=== PATIENT | female | born 1985 | race Caucasian/White ===

== ENCOUNTER 2019-12-04 14:10 | Emergency (ER) | payer OTHER, SELFPAY ==
[2019-12-04 15:17] LABS: Absolute Lymphocytes (CBC) 2.7 K/uL (0.7-4.9); Basophils % 0.2 % (0-1.3); Hematocrit 45.7 % (36.0-45.0); Lymphocytes % 18.2 % (15.3-44.8); MPV 7.2 fL (7.6-11.3); RBC Red Blood Cell Count 5.08 M/uL (3.86-4.86)
[2019-12-04 15:26] LABS: Urine Blood NEGATIVE (NEG); Urine Glucose NEGATIVE (NEG); Urine Protein NEGATIVE (NEG); Urine pH 7.5 (5.0-7.0)
--- NOTE | 2019-12-04 15:58 | RAD REPORT ---
EXAM DESCRIPTION: US - Transvaginal OB - 12/04/2019 3:43 pm CLINICAL HISTORY: VAGINAL BLEEDING COMPARISON: TRANSVAGINALOB dated 07/02/2008 FINDINGS: A single gestational sac is seen within the uterus. The shape of the sac is within normal limits for gestational age. Within the sac is a single pole with crown-rump length of 5 mm, cor relating to estimated gestational age of 6 weeks 3 days. Estimated date of delivery is 07/28/2020. Heart rate is 154 BPM. The placenta is not yet developed due to early gestational age. The maternal adnexa and ovaries are within normal limits. Normal Doppler blood flow was demonstrated to both ovaries. IMPRESSION: Single live early intrauterine gestation with estimated gestational age of 6 weeks 1 day , MARIELA 07/28/2020. No unusual or unexpected finding.
[2019-12-04 16:01] LABS: Potassium 3.7 mmol/L (3.5-5.1)
--- NOTE | 2019-12-04 16:09 | ER ---
Nurse's Notes [facility] Name: Kirti Garcia Age: 34 yrs Sex: Female : 1985 Arrival Date: 12/04/2019 Time: 14:13 Bed 13 Private MD: Diagnosis: Intrauterine 6 weeks;Threatened Presentation: 12/03 14:36 Chief complaint: Patient states: Had intercourse last night. Wiped after voiding at jl7 1100 this morning and there was pink on the toilet paper, nothing since then. Denies pain, denies N/V/D, denies fever, denies shortness of breath. Reports previous miscarriage when she was 20 yrs old. Coronavirus screen: Proceed with normal triage. Ebola Screen: No symptoms or risks identified at this time. Initial Sepsis Screen: Does the patient meet any 2 criteria? No. Patient's initial sepsis screen is negative. Does the patient have a suspected source of infection? No. Patient's initial sepsis screen is negative. Risk Assessment: Do you want to hurt yourself or someone else? Patient reports no desire to harm self or others. Onset of symptoms was December 04, 2019 at 11:00. Care prior to arrival: None. 14:36 Method Of Arrival: Ambulatory jl7 14:36 Acuity: MICHELLE 4 jl7 Triage Assessment: 14:45 General: Appears in no apparent distress. uncomfortable, Behavior is cooperative, jl7 anxious. Pain: Denies pain. : Reports vaginal bleeding that is light pink on toilet paper x 1 at 1100 this morning. 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 - Social history:: Smoking status: Patient reports the use of cigarette tobacco products, 3-5 cigarettes/day. Screenin:17 Abuse screen: Denies threats or abuse. Nutritional screening: No deficits noted. vc Tuberculosis screening: No symptoms or risk factors identified. Fall Risk None identified. Assessment: 15:27 General: Appears in no apparent distress. comfortable. Pain: Denies pain. Neuro: Level vc of Consciousness is awake, alert, obeys commands, Oriented to person, place, time, situation, Appropriate for age. Cardiovascular: Capillary refill. Respiratory: Airway is patent Respiratory effort is even, unlabored, Respiratory pattern is regular, symmetrical. GI: No signs and/or symptoms were reported involving the gastrointestinal system. : Reports vaginal bleeding that is. EENT: No signs and/or symptoms were reported regarding the EENT system. Derm: No signs and/or symptoms reported regarding the dermatologic system. Musculoskeletal: Circulation, motion, and sensation intact. Range of motion: intact in all extremities. 15:57 Reassessment: Patient talking on the phone while vitals are being taken. vc 16:00 Reassessment: Patient appears in no apparent distress at this time. Patient and/or vc family updated on plan of care and expected duration. Pain level reassessed. Patient is alert, oriented x 3, equal unlabored respirations, skin warm/dry/pink. Vital Signs: 14:36 BP 159 / 102; Pulse 101; Resp 17; Temp 98.3; Pulse Ox 100% ; Pain 0/10; jl7 15:07 BP 142 / 95; Pulse 96; Resp 17; Pulse Ox 100% ; vc 15:55 BP 141 / 104; Pulse 85; Pulse Ox 100% ; vc ED Course: 14:13 Patient arrived in ED. mr 14:40 Triage completed. jl7 14:45 Arm band placed on right wrist. jl7 14:47 Chantelle Murcia [facility]-C [facility] snw 14:47 Piyush Paul MD is Attending Physician. snw 15:00 Fiorella Zaldivar RN is Primary Nurse. vc 15:04 Initial lab(s) drawn, by me, sent to lab. Urine collected: clean catch specimen, clear. dh3 Inserted saline lock: 20 gauge in right antecubital area, using aseptic technique. Blood collected. 15:19 Patient has correct armband on for positive identification. Bed in low position. vc classroom monitor on. Pulse ox on. 15:42 Transvaginal Ob In Process Unspecified. EDMS Administered Medications: No medications were administered Outcome: 16:08 Discharge ordered by . rebecca 16:15 Discharged to home ambulatory. vc 16:15 Condition: good 16:15 Discharge instructions given to patient, Instructed on discharge instructions, follow up and referral plans. medication usage, Demonstrated understanding of instructions, follow-up care, medications. 16:17 Patient left the ED. 3 Signatures: Dispatcher [employer] EDMS Chantelle Murcia, WELT SLASHER-C WELT SLASHER-Maxim PhilJohanna Reno Robbins, RN RN jlKandy Banks 3 Fiorella Zaldivar, RN RN vc Corrections: (The following items were deleted from the chart) 15:57 15:17 Obstetrical Assessment: Patient reports vaginal bleeding.. vc vc
--- NOTE | 2019-12-04 16:09 | EDPHYS ---
Physician Documentation [facility] Name: Kirti Garcia Age: 34 yrs Sex: Female : 1985 Arrival Date: 12/04/2019 Time: 14:13 Bed 13 Private MD: ED Physician Piyush Paul HPI: 12/03 15:58 This 34 yrs old Female presents to ER via Ambulatory with complaints of snw Vaginal Bleeding, + Preg <12wks. 15:58 The patient presents with vaginal bleeding that is spotting, with no clots. Onset: The snw symptoms/episode began/occurred suddenly, today. Modifying factors: the symptoms are aggravated by sexual intercourse. Associated signs and symptoms: The patient has no apparent associated signs or symptoms. Severity of symptoms: At their worst the symptoms were very mild. The patient is sexually active, reportedly has a single partner. The patient's method of control includes nothing. The patient has experienced a previous episode. It is unknown whether or not the patient has recently seen a physician. 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 - Social history:: Smoking status: Patient reports the use of cigarette tobacco products, 3-5 cigarettes/day. ROS: 14:57 Constitutional: Negative for fever, chills, and weight loss, Eyes: Negative for injury, snw pain, redness, and discharge, ENT: Negative for injury, pain, and discharge, Neck: Negative for injury, pain, and swelling, Cardiovascular: Negative for chest pain, palpitations, and edema, Respiratory: Negative for shortness of breath, cough, wheezing, and pleuritic chest pain, Abdomen/GI: Negative for abdominal pain, nausea, vomiting, diarrhea, and constipation, Back: Negative for injury and pain, : Negative for injury, discharge, and swelling, postitive spotting x 1 last pm post intercourse MS/Extremity: Negative for injury and deformity, Skin: Negative for injury, rash, and discoloration, Neuro: Negative for headache, weakness, numbness, tingling, and seizure, Psych: Negative for depression, anxiety, suicide ideation, homicidal ideation, and hallucinations. Exam: 14:57 Constitutional: This is a well developed, well nourished patient who is awake, alert, snw and in no acute distress. Head/Face: Normocephalic, atraumatic. Eyes: Pupils equal round and reactive to light, extra-ocular motions intact. Lids and lashes normal. Conjunctiva and sclera are non-icteric and not injected. Cornea within normal limits. Periorbital areas with no swelling, redness, or edema. ENT: Nares patent. No nasal discharge, no septal abnormalities noted. Tympanic membranes are normal and external auditory canals are clear. Oropharynx with no redness, swelling, or masses, exudates, or evidence of obstruction, uvula midline. Mucous membranes moist. Neck: Trachea midline, no thyromegaly or masses palpated, and no cervical lymphadenopathy. Supple, full range of motion without nuchal rigidity, or vertebral point tenderness. No Meningismus. Chest/axilla: Normal chest wall appearance and motion. Nontender with no deformity. No lesions are appreciated. Cardiovascular: Regular rate and rhythm with a normal S1 and S2. No gallops, murmurs, or rubs. Normal PMI, no JVD. No pulse deficits. Respiratory: Lungs have equal breath sounds bilaterally, clear to auscultation and percussion. No rales, rhonchi or wheezes noted. No increased work of breathing, no retractions or nasal flaring. Abdomen/GI: Soft, non-tender, with normal bowel sounds. No distension or tympany. No guarding or rebound. No evidence of tenderness throughout. Back: No spinal tenderness. No costovertebral tenderness. Full range of motion. Skin: Warm, dry with normal turgor. Normal color with no rashes, no lesions, and no evidence of cellulitis. MS/ Extremity: Pulses equal, no cyanosis. Neurovascular intact. Full, normal range of motion. Neuro: Awake and alert, GCS 15, oriented to person, place, time, and situation. Cranial nerves II-XII grossly intact. Motor strength 5/5 in all extremities. Sensory grossly intact. Cerebellar exam normal. Normal gait. Psych: Awake, alert, with orientation to person, place and time. Behavior, mood, and affect are within normal limits. Vital Signs: 14:36 BP 159 / 102; Pulse 101; Resp 17; Temp 98.3; Pulse Ox 100% ; Pain 0/10; jl7 15:07 BP 142 / 95; Pulse 96; Resp 17; Pulse Ox 100% ; vc 15:55 BP 141 / 104; Pulse 85; Pulse Ox 100% ; vc MDM: 14:49 Patient medically screened. snw 14:59 Data reviewed: vital signs, nurses notes. Data interpreted: Pulse oximetry: on room air snw is 100 %. Interpretation: normal. Counseling: I had a detailed discussion with the patient and/or guardian regarding: the historical points, exam findings, and any diagnostic results supporting the discharge/admit diagnosis, the presence of at least one elevated blood pressure reading (>120/80) during this emergency department visit, lab results, radiology results. 12/03 14:49 Order name: Quantitative Hcg; Complete Time: 16:03 snw 12/03 14:49 Order name: Abo/rh Typing; Complete Time: 16:08 snw 12/03 14:49 Order name: Basic Metabolic Panel; Complete Time: 16:03 snw 12/03 14:49 Order name: CBC with Diff; Complete Time: 15:42 snw 12/03 15:22 Order name: Urine Dipstick--Ancillary (enter results); Complete Time: 15:42 eb 12/03 15:22 Order name: Urine --Ancillary (enter results); Complete Time: 15:42 eb 12/03 14:49 Order name: Urine Test (obtain specimen); Complete Time: 15:16 snw 12/03 14:49 Order name: IV Saline Lock; Complete Time: 15:16 snw 12/03 14:49 Order name: Labs collected and sent; Complete Time: 15:16 snw 12/03 14:49 Order name: NPO; Complete Time: 15:16 snw 12/03 14:49 Order name: Urine Dipstick-Ancillary (obtain specimen); Complete Time: 15:16 snw 12/03 14:49 Order name: US Transvaginal Ob; Complete Time: 16:01 snw Administered Medications: No medications were administered Disposition: 16:54 Co-signature as Attending Physician, Piyush Paul MD I agree with the assessment and kdr plan of care. Disposition: 12/04/19 16:08 Discharged to Home. Impression: Intrauterine 6 weeks, Threatened . - Condition is Stable. - Discharge Instructions: Threatened Miscarriage, Vaginal Bleeding During , First Trimester, First Trimester of , Pelvic Rest. - Prescriptions for Vitamin 27- 0.8 mg Oral Tablet - take 1 tablet by ORAL route once daily; 60 tablet. - Work release form, Medication Reconciliation Form, Thank You Letter, Antibiotic Education, Prescription Opioid Use form. - Follow up: Private Physician; When: 2 - 3 days; Reason: Recheck today's complaints, Continuance of care, Re-evaluation by your physician. Follow up: Emergency Department; When: As needed; Reason: Worsening of condition. - Problem is new. - Symptoms are unchanged. Signatures: Dispatcher [employer] EDMS Piyush Paul MD MD [facility] [address] Chantelle Murcia, BEAN SORTER-C BEAN SORTER-Csnw Reno Robbins RN RN jl7 Kandy Landa 3 Corrections: (The following items were deleted from the chart) 16:17 16:08 12/04/2019 16:08 Discharged to Home. Impression: Intrauterine 6 weeks; dh3 Threatened . Condition is Stable. Discharge Instructions: Threatened Miscarriage, Vaginal Bleeding During , First Trimester, First Trimester of , Pelvic Rest. Prescriptions for Vitamin 27-0.8 mg Oral Tablet - take 1 tablet by ORAL route once daily; 60 tablet. and Forms are Work release form, Medication Reconciliation Form, Thank You Letter, Antibiotic Education, Prescription Opioid Use. Follow up: Private Physician; When: 2 - 3 days; Reason: Recheck today's complaints, Continuance of care, Re-evaluation by your physician. Follow up: Emergency Department; When: As needed; Reason: Worsening of condition. Problem is new. Symptoms are unchanged. snw
[2019-12-04 16:25] VITALS: TEMP 98.3; O2SAT 100
[2019-12-04 16:28] VITALS: BP 141/104
== END 2019-12-04 16:17 | disposition home or self-care (01) ==
LOC: ER 14:10
DX: O20.0 Threatened abortion (principal); O16.1 Unspecified maternal hypertension, first trimester; O99.281 Endocrine, nutritional and metabolic diseases complicating pregnancy, first trimester; E03.9 Hypothyroidism, unspecified; O99.341 Other mental disorders complicating pregnancy, first trimester; F34.1 Dysthymic disorder; O99.331 Smoking (tobacco) complicating pregnancy, first trimester; F17.210 Nicotine dependence, cigarettes, uncomplicated; Z3A.01 Less than 8 weeks gestation of pregnancy; Z88.5 Allergy status to narcotic agent
CPT/HCPCS: 36415; 76817; 80048; 81003; 81025; 84702; 85025; 86900; 86901; 99284

== ENCOUNTER 2019-12-21 07:14 | Emergency (ER) | payer SELFPAY ==
--- OUTSIDE RECORDS SUMMARY | 2019-12-21 07:16 | XMS REPORT ---
:1985 Author Organization [facility] t Address [address] [place] [address] [address] [place] [address] Care Team Providers Name Role Phone Unavailable Unavailable Unavailable Problems This patient has no known problems. Allergies, Adverse Reactions, Alerts This patient has no known allergies or adverse reactions. Medications This patient has no known medications.
--- OUTSIDE RECORDS SUMMARY | 2019-12-21 07:16 | XMS REPORT | Summary of Care ---
:1985 Author Organization [facility] Address [address] [place] [id number] Care Team Providers Name Role Phone Nael Haywood MD Primary Care Provider Reason for Visit Reason Comments Refill Request Encounter Details Date Type Department Care Team Description 09/27/2019 Refill [facility] Family Medicine Marco Rodriguez MD Refill Request - [address] [place] [address] [place] [address] [phone] Allergies Active Allergy Reactions Severity Noted Date Comments Nickel Hives 09/28/2015 Tramadol Hives 09/28/2015 documented as of this encounter (statuses as of 09/28/2019) Medications Medication Sig Dispensed Refills Start Date End Date Status CRYSELLE 0.3-30 0 09/06/2015 Act edgardo mg-mcg per tablet traZODONE 50 mg Take 1 tablet 30 tablet 5 08/06/2018 Active tabletIndications: by mouth at Primary insomnia bedtime. escitalopram oxalate Take 1.5 45 tablet 12 09/16/2018 Active 10 mg tablets by tabletIndications: mouth daily. Anxiety, Panic attack TOPIRAMATE 50 mg TAKE 1 TABLET 60 tablet 5 01/07/2019 Active tabletIndications: BY MOUTH Migraine without TWICE DAILY status migrainosus, not intractable, unspecified migraine type lisinopril 10 mg Take 1 tablet 180 tablet 3 06/01/2019 Active tabletIndications: by mouth 2 Uncontrolled (two) times hypertension daily. benzonatate 200 mg Take 1 30 capsule 0 06/22/2019 Active capsuleIndications: capsule by Acute URI mouth 3 (three) times daily as needed for Cough. levothyroxine 175 TAKE 1 TABLET 90 tablet 0 09/28/2019 Active mcg BY MOUTH ONCE tabletIndications: DAILY IN THE Primary MORNING hypothyroidism levothyroxine 175 TAKE ONE 90 tablet 4 08/06/2018 D iscontinued mcg TABLET BY 0 tabletIndications: MOUTH ONCE Primary DAILY IN THE hypothyroidism MORNING documented as of this encounter (statuses as of 09/28/2019) Active Problems Problem Noted Date Vomiting 12/25/2017 Enteritis 12/25/2017 Leukocytosis, unspecified type 09/11/2017 Elevated AST (SGOT) 09/05/2017 PVC (premature ventricular contraction) 09/05/2017 Cardiac murmur 09/05/2017 Uncontrolled hypertension 09/05/2017 Obesity (BMI 30-39.9) 09/05/2017 Thyroiditis, subacute 02/06/2017 Multiple thyroid nodules 02/06/2017 Primary hypothyroidism 08/21/2016 Hypothyroid 09/28/2015 documented as of this encounter (statuses as of 09/28/2019) Resolved Problems Problem Noted Date Resolved Date Elevated blood pressure (not hypertension) 08/21/2016 09/05/2017 documented as of this encounter (statuses as of 09/28/2019) Social History Tobacco Use Types Packs/Day Years Used Date Former Smoker Cigarettes 0.5 13 Quit: 12/24/19 16 Smokeless Tobacco: Never Used Alcohol Use Drinks/Week oz/Week Comments Yes 2 Cans of beer 2.0 occ 0 Standard drinks or equivalent Sex Assigned at Date Recorded Not on file Job Start Date Occupation Industry Not on file Not on file Not on file Travel History Travel Start Travel End No recent travel history available. documented as of this encounter Last Filed Vital Signs Not on filedocumented in this encounter Plan of Treatment Health Maintenance Due Date Last Done Comments VARICELLA VACCINES (1 of 2 - 02/11/1988 2-dose childhood series) DTaP,Tdap,and Td Vaccines (1 - 1998 Tdap) PAP SMEAR 02/11/2008 INFLUENZA VACCINE (#1) 2019 PNEUMOCOCCAL 0-64 YEARS COMBINED Aged Out No longer eligible based on SERIES patient's age to complete this topic documented as of this encounter Results Not on filedocumented in this encounter Visit Diagnoses Diagnosis Primary hypothyroidism Unspecified hypothyroidism documented in this encounter Insurance Payer Benefit Plan / Group Subscriber ID Effective Dates Phone Address Type [employer] [id number] 2019-Present PPO documented as of this encounter
--- OUTSIDE RECORDS SUMMARY | 2019-12-21 07:16 | XMS REPORT | Summary of Care ---
:1985 Author Organization [facility] Address [address] [place] [id number] Care Team Providers Name Role Phone Nael Haywood MD Primary Care Provider Reason for Visit Reason Comments Refill Request Encounter Details Date Type Department Care Team Description 04/08/2019 Refill [facility] Family Medicine Marco Rodriguez MD Refill Request - [address] [place] [address] [place] [address] [phone] Allergies Active Allergy Reactions Severity Noted Date Comments Nickel Hives 09/28/2015 Tramadol Hives 09/28/2015 documented as of this encounter (statuses as of 04/10/2019) Medications Medication Sig Dispensed Refills Start Date End Date Status MARIPOSAE 0.3-30 0 09/06/2015 Act edgardo mg-mcg per tablet LISINOPRIL 10 mg TAKE ONE 60 tablet 1 01/01/2018 Ac tive tabletIndications: TABLET BY Uncontrolled MOUTH TWICE hypertension DAILY traZODONE 50 mg Take 1 tablet 30 tablet 5 08/06/2018 Active tabletIndications: by mouth at Primary insomnia bedtime. levothyroxine 175 TAKE ONE 90 tablet 4 08/06/2018 A ctive mcg TABLET BY tabletIndications: MOUTH ONCE Primary DAILY IN THE hypothyroidism MORNING escitalopram oxalate Take 1.5 45 tablet 12 09/16/2018 Active 10 mg tablets by tabletIndications: mouth daily. Anxiety, Panic attack azithromycin 500 mg Take 1 tablet 3 tablet 0 09/16/2018 Active tabletIndications: by mouth Rhinosinusitis daily. TOPIRAMATE 50 mg TAKE 1 TABLET 60 tablet 5 01/07/2019 Active tabletIndications: BY MOUTH Migraine without TWICE DAILY status migrainosus, not intractable, unspecified migraine type LISINOPRIL 10 mg TAKE ONE 180 tablet 0 04/10/2019 A ctive tabletIndications: TABLET BY Uncontrolled MOUTH TWICE A hypertension DAY LISINOPRIL 10 mg TAKE 1 TABLET 180 tablet 1 09/29/2018 Discontinued tabletIndications: BY MOUTH 9 Uncontrolled TWICE DAILY hypertension documented as of this encounter (statuses as of 04/10/2019) Active Problems Problem Noted Date Vomiting 12/25/2017 Enteritis 12/25/2017 Leukocytosis, unspecified type 09/11/2017 Elevated AST (SGOT) 09/05/2017 PVC (premature ventricular contraction) 09/05/2017 Cardiac murmur 09/05/2017 Uncontrolled hypertension 09/05/2017 Obesity (BMI 30-39.9) 09/05/2017 Thyroiditis, subacute 02/06/2017 Multiple thyroid nodules 02/06/2017 Primary hypothyroidism 08/21/2016 Hypothyroid 09/28/2015 documented as of this encounter (statuses as of 04/10/2019) Resolved Problems Problem Noted Date Resolved Date Elevated blood pressure (not hypertension) 08/21/2016 09/05/2017 documented as of this encounter (statuses as of 04/10/2019) Social History Tobacco Use Types Packs/Day Years Used Date Former Smoker Cigarettes 0.5 13 Quit: 12/24/19 16 Smokeless Tobacco: Never Used Alcohol Use Drinks/Week oz/Week Comments Yes 2 Cans of beer 1.2 occ 0 Standard drinks or equivalent Sex [...] Comments VARICELLA VACCINES (1 of 2 - 13+ 02/11/2000 2-dose series) DTaP,Tdap,and Td Vaccines (1 - 2006 Tdap) PAP SMEAR 02/11/2008 INFLUENZA VACCINE (#1) 2019 PNEUMOCOCCAL 0-64 YEARS COMBINED Aged Out No longer eligible based on SERIES patient's age to complete this topic documented as of this encounter Results Not on filedocumented in this encounter Visit Diagnoses Diagnosis Uncontrolled hypertension Unspecified essential hypertension documented in this encounter Insurance Payer Benefit Plan Subscriber ID Effective Dates Phone Address Type / Group [facility] [id number] 2017-[place] [phone] [address] PPO/POS [facility] [id number] [place] [address] documented as of this encounter
--- OUTSIDE RECORDS SUMMARY | 2019-12-21 07:17 | XMS REPORT | Summary of Care ---
:1985 Author Organization [facility] - [facility] Address [address] [place] [address] Care Team Providers Name Role Phone Nael Haywood MD Primary Care Provider Encounter Details Date Type Department Care Team Description 10/31/2019 Orders Only [facility] Doctor Unassigned, No [address] [facility] [place] [address] [address] [place] [address] Allergies Active Allergy Reactions Severity Noted Date Comments Nickel Hives 09/28/2015 Tramadol Hives 09/28/2015 documented as of this encounter (statuses as of 11/18/2019) Medications Medication Sig Dispensed Refills Start Date End Date Status CRYSELLE 0.3-30 mg-mcg 0 09/06/2015 Active per tablet traZODONE 50 mg Take 1 tablet by 30 tablet 5 08/06/2018 Active tabletIndications: mouth at Primary insomnia bedtime. TOPIRAMATE 50 mg TAKE 1 TABLET BY 60 tablet 5 01/07/2019 Active tabletIndications: MOUTH TWICE Migraine without status DAILY migrainosus, not intractable, unspecified migraine type lisinopril 10 mg Take 1 tablet by 180 tablet 3 06/01/2019 Active tabletIndications: mouth 2 (two) Uncontrolled times daily. hypertension benzonatate 200 mg Take 1 capsule 30 capsule 0 06/22/2019 Active capsuleIndications: by mouth 3 Acute URI (three) times daily as needed for Cough. levothyroxine 175 mcg TAKE 1 TABLET BY 90 tablet 0 09/28/2019 Active tabletIndications: MOUTH ONCE DAILY Primary hypothyroidism IN THE MORNING ESCITALOPRAM OXALATE 10 TAKE 1 TABLET BY 30 tablet 0 0 Active mg tabletIndications: MOUTH ONCE DAILY Anxiety, Panic attack documented as of this encounter (statuses as of 11/18/2019) Active Problems Problem Noted Date Vomiting 12/25/2017 Enteritis 12/25/2017 Leukocytosis, unspecified type 09/11/2017 Elevated AST (SGOT) 09/05/2017 PVC (premature ventricular contraction) 09/05/2017 Cardiac murmur 09/05/2017 Uncontrolled hypertension 09/05/2017 Obesity (BMI 30-39.9) 09/05/2017 Thyroiditis, subacute 02/06/2017 Multiple thyroid nodules 02/06/2017 Primary hypothyroidism 08/21/2016 Hypothyroid 09/28/2015 documented as of this encounter (statuses as of 11/18/2019) Resolved Problems Problem Noted Date Resolved Date Elevated blood pressure (not hypertension) 08/21/2016 09/05/2017 documented as of this encounter (statuses as of 11/18/2019) Social History Tobacco Use Types Packs/Day Years [...] this topic documented as of this encounter Procedures Procedure Name Priority Date/Time Associated Diagnosis Comme nts EMERGENCY DEPARTMENT Routine 10/31/2019 12: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
--- OUTSIDE RECORDS SUMMARY | 2019-12-21 07:17 | XMS REPORT | Summary of Care ---
:1985 Author Organization [facility] Address [address] [place] [address] Care Team Providers Name Role Phone Nael Haywood MD Primary Care Provider Reason for Visit Reason Comments Refill Request Encounter Details Date Type Department Care Team Description 10/29/2019 Refill [facility] Family Medicine Marco Rodriguez MD Refill Request - [address] [place] [address] [place] [address] [phone] Allergies Active Allergy Reactions Severity Noted Date Comments Nickel Hives 09/28/2015 Tramadol Hives 09/28/2015 documented as of this encounter (statuses as of 11/03/2019) Medications Medication Sig Dispensed Refills Start Date End Date Status CRYSELLE 0.3-30 0 09/06/2015 Act edgardo mg-mcg per tablet traZODONE 50 mg Take 1 tablet 30 tablet 5 08/06/2018 Active tabletIndications: by mouth at Primary insomnia bedtime. TOPIRAMATE 50 mg TAKE 1 TABLET 60 [...] tabletIndications: DAILY IN THE Primary MORNING hypothyroidism ESCITALOPRAM OXALATE TAKE 1 TABLET 30 tablet 0 11/03/2019 Active 10 mg BY MOUTH ONCE tabletIndications: DAILY Anxiety, Panic attack escitalopram oxalate Take 1.5 45 tablet 12 09/16/2018 11/03/19 2 Discontinued 10 mg tablets by 0 tabletIndications: mouth daily. Anxiety, Panic attack documented as of this encounter (statuses as of 11/03/2019) Active Problems Problem Noted Date Vomiting 12/25/2017 Enteritis 12/25/2017 Leukocytosis, unspecified type 09/11/2017 Elevated AST (SGOT) 09/05/2017 PVC (premature ventricular contraction) 09/05/2017 Cardiac murmur 09/05/2017 Uncontrolled hypertension 09/05/2017 Obesity (BMI 30-39.9) 09/05/2017 Thyroiditis, subacute 02/06/2017 Multiple thyroid nodules 02/06/2017 Primary hypothyroidism 08/21/2016 Hypothyroid 09/28/2015 documented as of this encounter (statuses as of 11/03/2019) Resolved Problems Problem Noted Date Resolved Date Elevated blood pressure (not hypertension) 08/21/2016 09/05/2017 documented as of this encounter (statuses as of 11/03/2019) Social History Tobacco Use Types Packs/Day Years [...] filedocumented in this encounter Visit Diagnoses Diagnosis Anxiety Anxiety state, unspecified Panic attack Panic disorder without agoraphobia documented in this encounter Insurance Payer Benefit Plan / Group Subscriber ID Effective Dates Phone Address Type AETNA AETNA [facility] [id number] 2019-Present PPO documented as of this encounter
--- OUTSIDE RECORDS SUMMARY | 2019-12-21 07:17 | XMS REPORT | Summary of Care ---
:1985 Author Organization [facility] - [facility] Address [address] [place] [address] Care Team Providers Name Role Phone Nael Haywood MD Primary Care Provider Encounter Details Date Type Department Care Team Description 12/09/2019 Orders Only [facility] Doctor Unassigned, No [address] [facility] [place] [address] [address] [place] [address] Allergies Active Allergy Reactions Severity Noted Date Comments Nickel Hives 09/28/2015 Tramadol Hives 09/28/2015 documented as of this encounter (statuses as of 12/09/2019) Medications Medication Sig Dispensed Refills Start Date [...] as of this encounter (statuses as of 12/09/2019) Active Problems Problem Noted Date Vomiting 12/25/2017 Enteritis 12/25/2017 Leukocytosis, unspecified type 09/11/2017 Elevated AST (SGOT) 09/05/2017 PVC (premature ventricular contraction) 09/05/2017 Cardiac murmur 09/05/2017 Uncontrolled hypertension 09/05/2017 Obesity (BMI 30-39.9) 09/05/2017 Thyroiditis, subacute 02/06/2017 Multiple thyroid nodules 02/06/2017 Primary hypothyroidism 08/21/2016 Hypothyroid 09/28/2015 documented as of this encounter (statuses as of 12/09/2019) Resolved Problems Problem Noted Date Resolved Date Elevated blood pressure (not hypertension) 08/21/2016 09/05/2017 documented as of this encounter (statuses as of 12/09/2019) Social History Tobacco Use Types Packs/Day Years [...] Name Priority Date/Time Associated Diagnosis Comme nts EXTERNAL PROVIDER Routine 12/09/2019 12:01 AM CDT RECORDS documented in this encounter Results Not on filedocumented in this encounter Insurance Payer Benefit Plan / Group Subscriber ID Effective Dates Phone Address Type AETNA AETNA [facility] [id number] 2019-Present PPO documented as of this encounter
--- OUTSIDE RECORDS SUMMARY | 2019-12-21 07:17 | XMS REPORT | Summary of Care ---
:1985 Author Organization [facility] Address [address] [place] [address] Care Team Providers Name Role Phone Nael Haywood MD Primary Care Provider Reason for Visit Reason Comments Assessment Encounter Details Date Type Department Care Team Description 12/07/2019 Telephone [facility] Pediatric and Marco Boyle MD Assessment Adult Primary Care- [address] [place] [address] [place] [address] , [address] [place] [address] Allergies Active Allergy Reactions Severity Noted Date Comments Nickel Hives 09/28/2015 Tramadol Hives 09/28/2015 documented as of this encounter (statuses as of 12/08/2019) Medications Medication Sig Dispensed Refills Start Date [...] as of this encounter (statuses as of 12/08/2019) Active Problems Problem Noted Date Vomiting 12/25/2017 Enteritis 12/25/2017 Leukocytosis, unspecified type 09/11/2017 Elevated AST (SGOT) 09/05/2017 PVC (premature ventricular contraction) 09/05/2017 Cardiac murmur 09/05/2017 Uncontrolled hypertension 09/05/2017 Obesity (BMI 30-39.9) 09/05/2017 Thyroiditis, subacute 02/06/2017 Multiple thyroid nodules 02/06/2017 Primary hypothyroidism 08/21/2016 Hypothyroid 09/28/2015 documented as of this encounter (statuses as of 12/08/2019) Resolved Problems Problem Noted Date Resolved Date Elevated blood pressure (not hypertension) 08/21/2016 09/05/2017 documented as of this encounter (statuses as of 12/08/2019) Social History Tobacco Use Types Packs/Day Years [...] Effective Dates Phone Address Type A[employer] [facility] [id number] 2019-Present PPO documented as of this encounter
[2019-12-21 07:56] LABS: Basophils % 0.7 % (0-1.3); Hematocrit 41.3 % (36.0-45.0); Lymphocytes % 19.3 % (15.3-44.8); RBC Red Blood Cell Count 4.65 M/uL (3.86-4.86)
[2019-12-21 08:29] LABS: Urine Amorphous Sediment 1+ /HPF (NONE SEEN); Urine Bacteria 20-50 /HPF (<20); Urine Culture Reflex Order REFLEXED
--- NOTE | 2019-12-21 08:47 | RAD REPORT ---
EXAM DESCRIPTION: US - Transvaginal OB - 12/21/2019 7:48 am CLINICAL HISTORY: with vaginal bleeding COMPARISON: December 04, 2019 spot is FINDINGS: The uterus measures 10 x 5 x 6 centimeters. A normal appearing gestational sac is present within the endometrium. Within this is a yolk sac and pole with a crown-rump length 0.6 centim eters. Cardiac activity was not visualized. 8 millimeter subchorionic bleed. Right ovary normal in size and echotexture. Left ovary not seen secondary to overlying bowel gas. Rig ht and left adnexal unremarkable. No significant free fluid is seen. IMPRESSION: Intrauterine with an estimated gestational age 6 weeks 4 days MARIELA 08/11/2020. Given the lack of growth and lack of visualization of cardiac activity most likely this represents a failed . A viable although possible is considerably less likely. As a precaution it is recommended that the patient have serial beta HCG levels as well as a followup endovaginal sono gram in 1 week for re-evaluation
[2019-12-21 08:48] LABS: BUN Blood Urea Nitrogen 11 mg/dL (7-18); Bicarbonate 27 mmol/L (21-32); Glucose Level 98 mg/dL (74-106); HCG, Quantitative 14086 mIU/mL (1-3); Potassium 3.4 mmol/L (3.5-5.1); Sodium Level 139 mmol/L (136-145)
[2019-12-21 09:15] LABS: Urine Blood 3+ (NEG); Urine Glucose NEGATIVE (NEG); Urine Protein NEGATIVE (NEG); Urine Specific Gravity 1.025 (1.005-1.030)
--- NOTE | 2019-12-21 09:16 | ER ---
Nurse's Notes [facility] Name: Kirti Garcia Age: 34 yrs Sex: Female : 1985 Arrival Date: 12/21/2019 Time: 07:16 Bed 7 Private MD: Diagnosis: Missed Presentation: 12/20 07:10 Chief complaint: EMS states: lower abd cramping and vaginal bleeding that started sv yesterday. Pt is about 9 wks , reports same episode about 2 wks ago and was seen here. BP 156/100 HR-104. Coronavirus screen: Proceed with normal triage. Patient denies a cough. Patient denies shortness of breath or difficulty breathing. Patient denies measured and/or subjective temperature greater than 100.4F prior to today's visit. Patient denies travel on a cruise ship or to a country the [facility] currently lists as an affected area. Patient denies contact with known and/or suspected case of COVID-19. Ebola Screen: No symptoms or risks identified at this time. Initial Sepsis Screen: Does the patient meet any 2 criteria? HR > 90 bpm. No. Patient's initial sepsis screen is negative. Does the patient have a suspected source of infection? No. Patient's initial sepsis screen is negative. Risk Assessment: Do you want to hurt yourself or someone else? Patient reports no desire to harm self or others. Onset of symptoms was December 20, 2019. 07:10 Method Of Arrival: EMS: [facility] sv 07:10 Acuity: MICHELLE 3 sv Triage Assessment: 07:10 General: Appears in no apparent distress. comfortable, Behavior is calm, cooperative, sv appropriate for age. Pain: Complains of pain in suprapubic area. Neuro: Level of Consciousness is awake, alert, obeys commands, Oriented to person, place, time, situation, Moves all extremities. Full function. Respiratory: Airway is patent Respiratory effort is even, unlabored, Respiratory pattern is regular, symmetrical. : Reports cramping, in bilateral lower quadrant(s) vaginal bleeding that is light flow, using panty liners. Derm: Skin is pink, warm \T\ dry. Musculoskeletal: Range of motion: intact in all extremities. Historical: - Allergies: 07:19 tramadol; sv - PMHx: 07:19 Anxiety; Depression; Hypertension; Hypothyroidism; sv - PSHx: 07:19 Cholecystectomy; D \T\ C; sv - Immunization history:: Adult Immunizations. - Family history:: not pertinent. - Social history:: Smoking status: . - Hospitalizations: : No recent hospitalization is reported. Screenin:10 Abuse screen: Denies threats or abuse. Denies injuries from another. Nutritional sv screening: No deficits noted. Tuberculosis screening: No symptoms or risk factors identified. Fall Risk None identified. Assessment: 08:07 Reassessment: Chaperoned Dr. Mcallister during pelvic exam. jl7 08:30 Reassessment: Patient appears in no apparent distress at this time. No changes from previously documented assessment. Patient and/or family updated on plan of care and expected duration. Pain level reassessed. Patient is alert, oriented x 3, equal unlabored respirations, skin warm/dry/pink. 09:40 Reassessment: Patient is alert, oriented x 3, equal unlabored respirations, skin aa5 warm/dry/pink. Vital Signs: 07:10 BP 150 / 89; Pulse 95; Resp 16; Temp 97.6; Pulse Ox 100% ; Weight 95.25 kg; Height 5 sv ft. 7 in. (170.18 cm); 08:56 BP 129 / 86; Pulse 88; Resp 18; Pulse Ox 99% ; sv 07:10 Body Mass Index 32.89 (95.25 kg, 170.18 cm) sv ED Course: 07:10 Patient has correct armband on for positive identification. Bed in low position. Call sv light in reach. Side rails up X2. Pulse ox on. NIBP on. Door closed. Warm blanket given. Head of bed elevated. 07:16 Patient arrived in ED. sv 07:17 Kimberly Grande, RN is Primary Nurse. sv 07:18 Noe Mcallister MD is Attending Physician. rn 07:19 Triage completed. sv 07:19 Arm band placed on. sv 07:38 Initial lab(s) drawn, by me, sent to lab. Urine collected: clean catch specimen, dh3 cloudy. Inserted saline lock: 20 gauge in left antecubital area, using aseptic technique. Blood collected. 07:49 US Transvaginal Ob In Process Unspecified. EDMS 09:15 Leonard Tapia MD is Referral Physician. rn 09:40 IV discontinued, intact, bleeding controlled, No redness/swelling at site. Pressure aa5 dressing applied. 09:40 No provider procedures requiring assistance completed. sv Administered Medications: No medications were administered Outcome: :15 Discharge ordered by . rn 09:40 Discharged to home ambulatory, with significant other. aa5 09:40 Condition: stable 09:40 Discharge instructions given to patient, Instructed on discharge instructions, follow up and referral plans. Demonstrated understanding of instructions, follow-up care. 09:47 Patient left the ED. aa5 Signatures: Dispatcher [employer] EDKimberly Ivan, RN RN sv Noe Mcallister MD MD rn Calderon, Audri RN RN aa5 Reno Robbins RN RN jl7 Kandy Landa [facility]
--- NOTE | 2019-12-21 09:16 | EDPHYS ---
Physician Documentation [facility] Name: Kirti Garcia Age: 34 yrs Sex: Female : 1985 Arrival Date: 12/21/2019 Time: 07:16 Bed 7 Private MD: ED Physician Noe Mcallister HPI: 12/20 07:20 This 34 yrs old Female presents to ER via EMS with complaints of Vaginal rn Bleeding, Abdominal Cramping. 07:20 The patient presents with vaginal bleeding that is. Onset: The symptoms/episode rn began/occurred yesterday. Modifying factors: The symptoms are alleviated by nothing, the symptoms are aggravated by nothing. Severity of symptoms: At their worst the symptoms were mild, in the emergency department the symptoms are unchanged. The patient has experienced a previous episode. The patient has been recently seen by a physician:. At approx 9 weeks by U/S, presents with new episode of vaginal bleeding, began yesterday, light, got better, then continued today. no fever or trauma. + intermittent lower back cramping. Seen 3 weeks ago for similar complaint here and "everything ok". No OB.. Historical: - Allergies: 07:19 tramadol; sv - PMHx: 07:19 Anxiety; Depression; Hypertension; Hypothyroidism; sv - PSHx: 07:19 Cholecystectomy; D \\T\\ C; sv - Immunization history:: Adult Immunizations. - Family history:: not pertinent. - Social history:: Smoking status: . - Hospitalizations: : No recent hospitalization is reported. ROS: 07:20 Positive for vaginal bleeding. rn 07:20 Constitutional: Negative for fever, chills, and weight loss, Eyes: Negative for injury, pain, redness, and discharge, Neck: Negative for injury, pain, and swelling, Cardiovascular: Negative for chest pain, palpitations, and edema, Respiratory: Negative for shortness of breath, cough, wheezing, and pleuritic chest pain, Abdomen/GI: Negative for diarrhea, and constipation, Back: Negative for injury MS/Extremity: Negative for injury and deformity, Skin: Negative for injury, rash, and discoloration, Neuro: Negative for headache, weakness, numbness, tingling, and seizure. Exam: 07:20 Constitutional: This is a well developed, well nourished patient who is awake, alert, rn and in no acute distress. Head/Face: Normocephalic, atraumatic. Eyes: Pupils equal round and reactive to light, extra-ocular motions intact. Lids and lashes normal. Conjunctiva and sclera are non-icteric and not injected. Cornea within normal limits. Periorbital areas with no swelling, redness, or edema. ENT: MMM Cardiovascular: Regular rate and rhythm. No pulse deficits. Respiratory: No increased work of breathing, no retractions or nasal flaring. Abdomen/GI: Soft, non-tender Skin: Warm, dry MS/ Extremity: Pulses equal, no cyanosis. Neurovascular intact. Full, normal range of motion. Equal circumference. Neuro: Awake and alert, GCS 15 08:06 : Pelvic Exam: Pelvic exam shows minimal blood, + closed cervical OS.. rn Vital Signs: 07:10 BP 150 / 89; Pulse 95; Resp 16; Temp 97.6; Pulse Ox 100% ; Weight 95.25 kg; Height 5 sv ft. 7 in. (170.18 cm); 08:56 BP 129 / 86; Pulse 88; Resp 18; Pulse Ox 99% ; sv 07:10 Body Mass Index 32.89 (95.25 kg, 170.18 cm) sv MDM: 07:18 Patient medically screened. rn 08:06 Differential diagnosis: threatened Ab, inevitable Ab, retained Ab, missed Ab. rn 08:55 ED course: Called Dr. Tapia, no answer, left message, will try again shortly. . rn 09:14 Data reviewed: vital signs, nurses notes, lab test result(s), radiologic studies, rn ultrasound, and as a result, I will discharge patient. Counseling: I had a detailed discussion with the patient and/or guardian regarding: the historical points, exam findings, and any diagnostic results supporting the discharge/admit diagnosis, lab results, radiology results, the need for outpatient follow up, to return to the emergency department if symptoms worsen or persist or if there are any questions or concerns that arise at home. ED course: Consulted with Dr. Tapia, states wa home with f/u this week to discuss expectant management vs D\\T\\C. Stable vitals and blood type A+, no need for RhoGAM . 12/20 07:19 Order name: Quantitative Hcg; Complete Time: 08:53 rn 12/20 07:19 Order name: Basic Metabolic Panel; Complete Time: 08:53 rn 12/20 07:19 Order name: CBC with Diff; Complete Time: 08:44 rn 12/20 07:19 Order name: Urine Microscopic Only; Complete Time: 08:44 rn 12/20 08:20 Order name: Urine Dipstick--Ancillary (enter results); Complete Time: 09:16 bd 12/20 08:20 Order name: Urine --Ancillary (enter results); Complete Time: 09:16 bd 12/20 07:19 Order name: IV Saline Lock; Complete Time: 07:49 rn 12/20 07:19 Order name: Labs collected and sent; Complete Time: 07:49 rn 12/20 07:19 Order name: NPO; Complete Time: 07:49 rn 12/20 07:19 Order name: Urine Dipstick-Ancillary (obtain specimen); Complete Time: 07:49 rn 12/20 07:19 Order name: US Transvaginal Ob; Complete Time: 08:53 rn 12/20 08:31 Order name: Urine Culture EDMS Administered Medications: No medications were administered Disposition: 12/21/19 09:15 Discharged to Home. Impression: Missed . - Condition is Stable. - Discharge Instructions: Miscarriage. - Medication Reconciliation Form, Thank You Letter, Antibiotic Education, Prescription Opioid Use, Work release form form. - Follow up: Leonard Tapia MD; When: 2 - 3 days; Reason: Recheck today's complaints, Re-evaluation by your physician. - Problem is new. - Symptoms are unchanged. Signatures: Dispatcher [employer] EDKimberly Ivan RN RN sv Nieto, Roman, MD MD rn Calderon, Audri, RN RN aa5 Corrections: (The following items were deleted from the chart) 09:47 09:15 12/21/2019 09:15 Discharged to Home. Impression: Missed . Condition is aa5 Stable. Forms are Medication Reconciliation Form, Thank You Letter, Antibiotic Education, Prescription Opioid Use. Follow up: Leonard Tapia; When: 2 - 3 days; Reason: Recheck today's complaints, Re-evaluation by your physician. Problem is new. Symptoms are unchanged. rn
[2019-12-21 09:58] VITALS: BP 129/86; O2SAT 99
== END 2019-12-21 09:47 | disposition home or self-care (01) ==
LOC: ER 07:14
DX: O02.1 Missed abortion (principal); Z88.5 Allergy status to narcotic agent
CPT/HCPCS: 36415; 76817; 80048; 81003; 81015; 81025; 84702; 85025; 87086; 87088; 99284

== ENCOUNTER 2022-05-10 19:10 | Emergency (ER) | payer OTHER, SELFPAY ==
--- NOTE | 2022-05-10 20:44 | EDPHYS ---
Physician Documentation [facility] Name: Kirti Forde Age: 37 yrs Sex: Female : 1985 Arrival Date: 05/10/2022 Time: 19:15 Bed Waiting Private MD: ED Physician Noe Mcallister HPI: 05/10 20:50 This 37 yrs old Female presents to ER via Ambulatory with complaints of Cough, kb Congestion, Sore Throat, COVID + ON HOME TEST. 20:50 The patient or guardian reports cough, that is intermittent, described as mild. Onset: kb The symptoms/episode began/occurred this morning. Severity of symptoms: At their worst the symptoms were moderate, in the emergency department the symptoms are unchanged. Modifying factors: The symptoms are alleviated by nothing, the symptoms are aggravated by nothing. Associated signs and symptoms: Pertinent positives: rhinorrhea, sore throat. The patient has not experienced similar symptoms in the past. The patient has not recently seen a physician. Pt states she started feeling bad this morning with cough, congestion and sore throat. Took a home covid test that was positive. Came in to get another covid test done because her work requires an "official" one. 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 - Social history:: Smoking status: Patient reports the use of cigarette tobacco products, smokes one-half pack cigarettes per day, Reported history of juuling and/or vaping. ROS: 20:52 Abdomen/GI: Negative for abdominal pain, nausea, vomiting, diarrhea, and constipation. kb 20:52 Constitutional: Positive for fatigue, malaise. 20:52 ENT: Positive for rhinorrhea, sinus congestion, sore throat. 20:52 Respiratory: Positive for cough. 20:52 All other systems are negative. Exam: 20:52 Constitutional: This is a well developed, well nourished patient who is awake, alert, kb and in no acute distress. Head/Face: Normocephalic, atraumatic. ENT: Moist Mucous membranes Cardiovascular: Regular rate and rhythm with a normal S1 and S2. No gallops, murmurs, or rubs. No pulse deficits. Respiratory: Respirations even and unlabored. No increased work of breathing. Talking in full sentences Abdomen/GI: Soft, non-tender. No distention Skin: Warm, dry with normal turgor. Normal color. MS/ Extremity: Pulses equal, no cyanosis. Neurovascular intact. Full, normal range of motion. Neuro: Awake and alert, GCS 15, oriented to person, place, time, and situation. Moves all extremities. Normal gait. Psych: Awake, alert, with orientation to person, place and time. Behavior, mood, and affect are within normal limits. Vital Signs: 19:22 BP 126 / 90; Pulse 104; Resp 18; Temp 98.6(T); Pulse Ox 100% on R/A; Weight 96.62 kg; tw5 Height 5 ft. 7 in. (170.18 cm); Pain 9/10; 19:22 Body Mass Index 33.36 (96.62 kg, 170.18 cm) tw5 19:22 Pain is a headache tw5 MDM: 19:27 Patient medically screened. kb 20:42 Data reviewed: vital signs, nurses notes. Data interpreted: Pulse oximetry: on room air kb is 100 %. Interpretation: normal. Counseling: I had a detailed discussion with the patient and/or guardian regarding: the historical points, exam findings, and any diagnostic results supporting the discharge/admit diagnosis, lab results, the need for outpatient follow up, a family practitioner, to return to the emergency department if symptoms worsen or persist or if there are any questions or concerns that arise at home. 05/10 19:26 Order name: COVID-19 SARS RT PCR (Document "Date of Onset" if Symptomatic); Complete tw5 Time: 20:45 05/10 19:26 Order name: Flu; Complete Time: 20:11 tw5 05/10 19:26 Order name: Strep; Complete Time: 20:07 tw5 05/10 20:08 Order name: Throat Culture EDMS Administered Medications: No medications were administered Disposition: 22:49 Co-signature as Attending Physician, Noe Mcallister MD. rn Disposition Summary: 05/10/22 20:43 Discharge Ordered Location: Home kb Condition: Stable kb Diagnosis - SARS-associated coronavirus as the cause of diseases classified elsewhere kb Followup: kb - With: Emergency Department - When: As needed - Reason: Worsening of condition Followup: kb - With: Private Physician - When: 2 - 3 days - Reason: Recheck today's complaints, Continuance of care, Re-evaluation by your physician Discharge Instructions: - Discharge Summary Sheet kb - COVID-19 kb - Viral Illness, Adult kb Forms: - Medication Reconciliation Form kb - Thank You Letter kb - Antibiotic Education kb - Prescription Opioid Use kb Prescriptions: - Paxlovid (EUA) 150 mg x 2- 100 mg Oral tablet - take 3 tablet by ORAL route 2 times per day for 5 days per package directions; kb 30 tablet; Refills: 0, Product Selection Permitted Signatures: Dispatcher [employer] EDMS Spring Davis, [facility]NAGER-Noe Carreon MD MD rn Wood, Tiffany tw5
--- NOTE | 2022-05-10 20:44 | ER ---
Nurse's Notes [facility] Name: Kirti Forde Age: 37 yrs Sex: Female : 1985 Arrival Date: 05/10/2022 Time: 19:15 Bed Waiting Private MD: Diagnosis: SARS-associated coronavirus as the cause of diseases classified elsewhere Presentation: 05/10 19:22 Chief complaint: Patient states: "I took a home test for covid and it was positive. I tw5 just started to feel bad last night. I work at [employer] and one of the residences tested positive on Saturday.". Coronavirus screen: Vaccine status: Patient reports receiving the 1st dose of the Covid vaccine. Moderna. Ebola Screen: Patient negative for fever greater than or equal to 101.5 degrees Fahrenheit, and additional compatible Ebola Virus Disease symptoms Patient denies exposure to infectious person. Patient denies travel to an Ebola-affected area in the 21 days before illness onset. Initial Sepsis Screen: Does the patient meet any 2 criteria? HR > 90 bpm. Does the patient have a suspected source of infection? No. Patient's initial sepsis screen is negative. Risk Assessment: Do you want to hurt yourself or someone else? Patient reports no desire to harm self or others. Onset of symptoms was May 09, 2022 at 20:00. 19:22 Method Of Arrival: Ambulatory tw5 19:22 Acuity: MICHELLE 4 tw5 Triage Assessment: 19:24 General: Appears in no apparent distress. Behavior is calm, cooperative, appropriate tw5 for age. Pain: Pain currently is 9 out of 10 on a pain scale. 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 - Social history:: Smoking status: Patient reports the use of cigarette tobacco products, smokes one-half pack cigarettes per day, Reported history of juuling and/or vaping. Screenin:25 Abuse screen: Denies threats or abuse. Denies injuries from another. Nutritional tw5 screening: No deficits noted. Tuberculosis screening: No symptoms or risk factors identified. Fall Risk None identified. Assessment: 19:31 General: Appears in no apparent distress. Cardiovascular: Capillary refill < 3 seconds. tw5 Respiratory: Airway is patent Breath sounds are clear bilaterally. 19:31 General: Reports "Just of where I work I need a doctors note confirming that I have tw5 covid.". Vital Signs: 19:22 BP 126 / 90; Pulse 104; Resp 18; Temp 98.6(T); Pulse Ox 100% on R/A; Weight 96.62 kg; tw5 Height 5 ft. 7 in. (170.18 cm); Pain 9/10; 19:22 Body Mass Index 33.36 (96.62 kg, 170.18 cm) tw5 19:22 Pain is a headache tw5 ED Course: 19:15 Patient arrived in ED. jj6 19:24 Triage completed. tw5 19:24 Spring [facility] kb 19:24 Noe Mcallister MD is Attending Physician. kb 19:24 Arm band placed on right wrist. tw5 19:25 No provider procedures requiring assistance completed. tw5 19:31 Awaiting lab results. tw5 19:31 Patient has correct armband on for positive identification. tw5 19:31 Strep Sent. tw5 19:31 Flu Sent. tw5 19:31 COVID-19 SARS RT PCR (Document "Date of Onset" if Symptomatic) Sent. tw5 19:31 COVID swab sent to lab. Flu and/or RSV swab sent to lab. Strep swab sent to lab. tw5 19:31 Patient did not have IV access during this emergency room visit. tw5 20:27 Throat Culture Sent. tw5 20:38 COVID-19 SARS RT PCR (Document "Date of Onset" if Symptomatic) Sent. tw5 Administered Medications: No medications were administered Medication: 19:31 VIS not applicable for this client. tw5 Outcome: 20:43 Discharge ordered by . kb 21:14 Discharged to home ambulatory. tw5 21:14 Condition: stable 21:14 Discharge instructions given to patient, Instructed on discharge instructions, follow up and referral plans. medication usage, Demonstrated understanding of instructions, follow-up care, medications. 21:14 Patient left the ED. tw5 Signatures: Spring Davis FNP-C FNP-Francesca Anton tw5 Camille Luo jj6
[2022-05-12 05:05] VITALS: BP 126/90; TEMP 98.6; O2SAT 100
== END 2022-05-10 21:14 | disposition home or self-care (01) ==
LOC: ER 19:10
DX: U07.1 COVID-19 (principal); F17.210 Nicotine dependence, cigarettes, uncomplicated
CPT/HCPCS: 87070; 87081; 87804; 99283; U0003